=== PATIENT | female | born 1950 | race Caucasian/White ===

== ENCOUNTER → 2016-11-21 16:26 | Outpatient (CLI) | payer MEDICARE, OTHER | END | disposition home or self-care (01) | LOC: D.MAMMO 14:00 | DX: Z12.31 Encounter for screening mammogram for malignant neoplasm of breast (principal) ==

== ENCOUNTER → 2018-01-16 19:34 | Outpatient (CLI) | payer MEDICARE, OTHER | END | disposition home or self-care (01) | LOC: D.MAMMO 13:00 | DX: Z12.31 Encounter for screening mammogram for malignant neoplasm of breast (principal) ==

== ENCOUNTER → 2018-06-03 07:59 | Outpatient (CLI) | payer MEDICARE, OTHER | END | disposition home or self-care (01) | LOC: D.MRI 07:59 | DX: M54.2 Cervicalgia (principal) ==

== ENCOUNTER → 2018-10-01 10:33 | Outpatient (CLI) | payer MEDICARE, OTHER ==
--- NOTE | 2018-10-03 11:54 | ST ---
PATIENT:KIRSTIN RIDDLE MEDICAL RECORD: [id number] SEX: F LOCATION:[facility] ORDER #: ADMISSION DATE: 10/01/18 AGE OF PATIENT: 68 REFERRING PHYSICIAN: INTERPRETING PHYSICIAN: NOBLE SANTOS MD DATE OF SERVICE: 10/01/2018 Nuclear Stress Test INDICATION: Chest pain compatible with angina, abnormal ECG. She was exercised on standard [place] protocol for 5 minutes, terminated due to achievement of maximum target heart rate response with 32 mCi of sestamibi injected at peak stress, 11 mCi used previously for rest images. FINDINGS: Gated SPECT reveals preserved ejection fraction at 74% with good wall motion and thickening and brightening throughout all segments. SPECT imaging Cardiolite was used as myocardial fusion agent. There is homogeneous uptake throughout all segments at rest and stress with no evidence of inducible ischemia or previous infarction. OVERALL IMPRESSION: 1. This is a normal nuclear stress test with no evidence of inducible ischemia or previous infarction. 2. Gated SPECT reveals a preserved ejection fraction at 74%. In this patient with ongoing symptomatology, the current scan does not suggest the presence of hemodynamically significant coronary artery disease. Evaluate noncardiac etiology of chest pain. TRANSINT:[id number] Voice Confirmation ID: [id number] DOCUMENT ID: [id number] NOBLE SANTOS MD at 1154 CC: [id number] DICTATION DATE: 10/02/18 1224 CUSTODY ASSISTANT: 10/03/18 0707 DEP CLI 10/01/18 [place] [id number]
== END | disposition home or self-care (01) ==
LOC: D.HCCARDIO 10:30
PROVIDERS: ATTEND Internal Medicine Interventional Cardiology
DX: I20.9 Angina pectoris, unspecified (principal)

== ENCOUNTER → 2018-10-14 11:08 | Outpatient (CLI) | payer MEDICARE, OTHER ==
--- NOTE | 2018-10-16 14:40 | EC ---
PATIENT:KIRSTIN RIDDLE DATE OF SERVICE: 10/14/18 SEX: F MEDICAL RECORD: [id number] DATE OF : 48 LOCATION:[facility] AGE OF PATIENT: 68 ADMISSION DATE: 10/14/18 REFERRING PHYSICIAN: INTERPRETING PHYSICIAN: MILIND POLLARD MD ECHOCARDIOGRAM REPORT ECHO CHARGES 4 ECHO COMPLETE Date: 10/14/18 CLINICAL DIAGNOSIS: HEART MURMUR ECHOCARDIOGRAPHIC MEASUREMENTS (adult normal given) AC root (d.<3.7cm) 2.8 cm LV Septum d (<1.2 cm> 1.1 cm Valve Excursion 1.6 cm LV Septum (systole) 1.3 cm Left Atria (s.<4.0cm> 2.7 cm LVPW d(<1.2cm) 1.2 cm RV (d.<2.3cm) 2.6 cm LVPW (sytole) 1.3 cm LV diastole(<5.6CM) 3.5 cm MV E-F(>70mm/sec) cm LV systole 2.4 cm LVOT Diameter 1.8 cm MV exc.(>10mm) 1.6 cm Est.ejection fraction (50-75%) % DOPPLER: LVIT cm/sec A 83.0 cm/sec E 55.0 cm/sec LA cm/sec RVSP 29 mmHg LVOT 101 cm/sec AOP1/2T m/s Asc. Ao 131 cm/sec RVOT 96 cm/sec RA cm/sec PA 106 cm/sec AV Gradient Peak 6.84 mmHg AV Mean 3.22 mmHg AV Area 1.7 cm MV Gradient Peak 5.15 mmHg MV Mean 1.75 mmHg MV Area cm COMMENTS: Digester: 2 KYLE CHANDRA Patent Leather Sorter: 3 Dr. Bragg TAPE# PACS Pericardial Effusion N DATE OF SERVICE: Adequate 2D, color flow, spectral Doppler, and M-mode. No LVH. LV internal dimensions are normal. Wall motion normal. EF is greater than or equal to 55%. Aortic valve is sclerotic. No evidence of stenosis by Doppler interrogation. Left atrium is normal at 2.7 cm. Mitral valve shows no prolapse. Trace MR. Right-sided chamber grossly normal. Trace TR. TRANSINT:[id number] Voice Confirmation ID: [id number] DOCUMENT ID: [id number] ECHOCARDIOGRAM REPORT [id number] KIRSTIN RIDDLE,MILIND Valero MD at 1440 CC: [id number] DICTATION DATE: 10/15/18899 LABORATORY MECHANICAL TECHNICIAN: 10/15/18 09 DEP CLI 10/14/18 [place] [id number] [place] [address]
== END | disposition home or self-care (01) ==
LOC: D.HCCARDIO 11:08
PROVIDERS: ATTEND Internal Medicine Interventional Cardiology
DX: R01.1 Cardiac murmur, unspecified (principal)